=== PATIENT | male | born 1990 | race Two or more races ===

== ENCOUNTER 2016-10-06 12:20 | Emergency (ER) | payer SELFPAY ==
[2016-10-06 13:01] LABS: URINE BILIRUBIN NEGATIVE (NEGATIVE); URINE BLOOD NEGATIVE (NEGATIVE); URINE GLUCOSE (UA) NEGATIVE (NEGATIVE); URINE LEUKOCYTE ESTERASE NEGATIVE (NEGATIVE); URINE NITRITE NEGATIVE (NEGATIVE); URINE PROTEIN NEGATIVE (NEGATIVE); URINE UROBILINOGEN NORMAL (0-1 mg/dl)
[2016-10-06] MEDS ORDERED: ACETAMINOPHEN 500 MG TABLET ONE (13:02)
[2016-10-06 13:03] LABS: URINE APPEARANCE CLEAR; URINE COLOR YELLOW
[2016-10-07 14:16] LABS: CHLAMYDIA BD Negative (Negative); N.GONORRHOEAE BD Negative (Negative); SOURCE Urine (())
== END 2016-10-06 13:34 | disposition home or self-care (01) ==
LOC: ED 12:20
DX: R50.9 Fever, unspecified (principal); R30.0 Dysuria
CPT/HCPCS: 87491; 87591; 81003; 99283 ×2; A9270